=== PATIENT | female | born 1975 | race African-American/Black ===

== ENCOUNTER 2020-12-09 11:49 | Emergency (ER) | payer OTHER ==
[~2020-12-09] VITALS: Ht 152.4 cm; Wt 99.8 kg
[2020-12-09 11:53] VITALS: BP 163/98
[2020-12-09 12:38] LABS: EOSINOPHILS 0.7 % (0.0-3.0); HEMATOCRIT 38.9 % (37.0-47.0); HEMOGLOBIN 12.9 gm/dL (12.0-15.0); LYMPHOCYTES 35.6 % (24.0-44.0); MCH 27.7 pg (26.0-34.0); MCHC 33.1 g/dL (28.0-37.0); MCV 83.6 fL (80.0-100.0); MONOCYTES 5.7 % (1.0-8.0); PLATELET COUNT 401 thou/uL (150-400); RBC 4.65 mil/uL (4.20-5.00); RDW 15.8 % (10.5-14.5); WBC 10.6 thou/uL (4.0-11.0)
[2020-12-09 12:45] LABS: CALCIUM 9.5 mg/dL (8.5-10.1); CREATININE 1.1 mg/dL (0.6-1.0)
[2020-12-09 13:04] LABS: POTASSIUM 2.9 mmol/L (3.5-5.1)
[2020-12-09] MEDS ORDERED: EQUETRO100 MG PO ×2 (13:36→13:42)
[2020-12-09] MEDS ORDERED: NORCO7.5 PO ×2 (13:36→13:42)
[2020-12-09] MEDS ORDERED: POTASSIUM20 PO ×2 (13:37→13:42)
== END 2020-12-09 13:58 | disposition home or self-care (01) ==
LOC: ER 11:49
PROVIDERS: Physician Assistant
DX: G50.0 Trigeminal neuralgia (principal); E11.9 Type 2 diabetes mellitus without complications; I10 Essential (primary) hypertension; F41.9 Anxiety disorder, unspecified; F32.9 Major depressive disorder, single episode, unspecified